=== PATIENT | male | born 1960 | race Caucasian/White ===

== ENCOUNTER 2020-11-18 13:08 | Inpatient (IN) | payer MEDICARE, OTHER ==
[~2020-11-18] VITALS: Ht 182.9 cm; Wt 59.9 kg
--- NOTE | 2020-11-18 13:11 | NUR ---
Patient brought in by ambulance service for nausea, vomiting and hyperglycemia
[2020-11-18] MEDS ORDERED: IV NORMAL SALINE 1000 ML BAG IV ONE ×2 (13:30→14:45)
[2020-11-18 14:07] LABS: BASOPHILS # (AUTO) 0.1 K/uL (0.0-8.0); BASOPHILS % (AUTO) 1.5 % (0.0-2.0); EOSINOPHILS # (AUTO) 0.2 K/uL (0.0-0.7); EOSINOPHILS % (AUTO) 2.5 % (0.0-7.0); HEMATOCRIT 34.7 % (36.7-47.1); HEMOGLOBIN 11.3 g/dL (12.5-16.3); MEAN CORPUSCULAR HEMOGLOBIN 25.3 uug (23.8-33.4); MEAN CORPUSCULAR HGB CONC 33 g/dL (32.5-36.3); MEAN CORPUSCULAR VOLUME 77.7 fL (73.0-96.2); MONOCYTES # (AUTO) 0.8 K/uL (2.0-10.0); MONOCYTES % (AUTO) 8.5 % (0.0-11.0); NEUTROPHILS # (AUTO) 6.3 K/uL (1.8-8.9); NEUTROPHILS % (AUTO) 66.5 % (38.5-71.5); PLATELET COUNT (AUTO) 560 K/uL (152-348); RED BLOOD CELL COUNT(AUTO) 4.46 MIL/uL (4.06-5.63); WHITE BLOOD COUNT (AUTO) 9.5 K/uL (3.6-10.2)
[2020-11-18 14:19] LABS: BILIRUBIN,DIRECT 0.1 mg/dL (0.0-0.2); BILIRUBIN,TOTAL 0.3 mg/dL (0.2-1.0); CREATININE 1.3 mg/dL (0.6-1.3); POTASSIUM 3.7 mmol/L (3.5-5.1); TOTAL PROTEIN, SERUM 7.4 g/dL (6.4-8.2)
[2020-11-18] MEDS ORDERED: INSULIN REGULAR, HUMAN 300 UNIT/3 ML VIAL IV ONE (14:45)
[2020-11-18] MEDS ORDERED: MONT10TA33 PO (14:59)
[2020-11-18] MEDS ORDERED: MULT-213 PO (14:59)
[2020-11-18] MEDS ORDERED: MIDO10TA PO (14:59)
[2020-11-18] MEDS ORDERED: ASCO500P18 PO (14:59)
[2020-11-18] MEDS ORDERED: ESCI10TA PO (14:59)
[2020-11-18] MEDS ORDERED: HEPA500034 SQ (14:59)
[2020-11-18] MEDS ORDERED: BUDE10.22 IH (14:59)
[2020-11-18] MEDS ORDERED: SUCR1TAB PO ×2 (14:59→15:35)
[2020-11-18] MEDS ORDERED: LAMO25TA10 PO (14:59)
[2020-11-18] MEDS ORDERED: THIA100T13 PO (14:59)
[2020-11-18] MEDS ORDERED: FERR325T28 PO (14:59)
[2020-11-18] MEDS ORDERED: ONDANSETRON 4 MG/2 ML VIAL IV ONE (15:00)
[2020-11-18] MEDS ORDERED: INSULIN REGULAR, HUMAN 300 UNIT/3 ML VIAL ONE (15:12)
[2020-11-18] MEDS ORDERED: ONDANSETRON 4 MG/2 ML VIAL ONE (15:12)
[2020-11-18] MEDS ORDERED: POLY17PO4 PO (15:26)
[2020-11-18] MEDS ORDERED: INSU100V39 SQ (15:26)
[2020-11-18] MEDS ORDERED: LEVO175T7 PO (15:26)
[2020-11-18] MEDS ORDERED: MAGN400T8 PO (15:26)
[2020-11-18] MEDS ORDERED: FOLI1TAB94 PO (15:26)
[2020-11-18] MEDS ORDERED: IPRA0.2S48 NEB (15:35)
[2020-11-18] MEDS ORDERED: INSU100V42 SQ (15:35)
[2020-11-18] MEDS ORDERED: INSU100I26 SQ (15:35)
[2020-11-18] MEDS ORDERED: INSU100I14 SQ (15:35)
--- NOTE | 2020-11-18 15:46 | NUR ---
Report given to Georgi at this time, room 317
--- NOTE | 2020-11-18 16:10 | NUR ---
60 YEAR OLD MALE RECEIVED FROM ER FOR HYPERNATREMIA .PT IS AXOX3 .ORIENT THE PT TO ROOM AND SURROUNDINGS VS ARE STABLE CALL LIGHT WITH IN REACH . CALLED FOR ADMISSION ORDERS
--- NOTE | 2020-11-18 16:17 | NUR ---
Pt. admitted to tele , under care of Dr. Ibrahim Belongs List completed and all belongings sent
[2020-11-18 16:26] VITALS: BP 103/71
[2020-11-18] MEDS: IV NS 1000 ML 1,000 ML IV SCH (17:20)
[2020-11-18] MEDS ORDERED: ASCO500T10 PO (18:02)
[2020-11-18] MEDS ORDERED: HEPA50008 SQ (18:12)
[2020-11-18] MEDS ORDERED: MULT-1045 PO (18:19)
[2020-11-18] MEDS: LAMOTRIGINE 25 MG TABLET PO SCH (18:25)
[2020-11-18] MEDS ORDERED: IPRATROPIUM BROMIDE 0.5 MG/2.5 ML NEBU NEB PRN (18:30)
[2020-11-18] MEDS ORDERED: DEXTROSE 50% 50 ML DISP.SYRIN IV PRN (18:45)
--- NOTE | 2020-11-18 19:30 | NUR ---
Received pt in bed, awake and verbally responsive, able to make needs known. Pt denies any pain or discomfort, no s/s of respiratory distress on room air. IVF infusing well. Safety measures initiated, call light within reach, will continue to monitor.
[2020-11-18] MEDS: MIDODRINE HCL 5 MG TABLET PO SCH (19:47)
--- NOTE | 2020-11-18 19:53 | NUR ---
Pt refused Lamictal medication. Explained the risks of non compliance to medications. Pt still refused. will continue to monitor.
[2020-11-18] MEDS ORDERED: HYDROCODONE/APAP 5-325MG TABLET PO PRN (20:00)
[2020-11-18] MEDS ORDERED: ZOLPIDEM 5 MG TABLET PO PRN (20:00)
--- NOTE | 2020-11-18 20:20 | NUR ---
Pt's blood sugar is 186. Pt refused insulin coverage and all 2100 medications. Explained to pt the risks of non compliance to medications. Pt still refused. will continue to monitor.
[2020-11-18 20:25] VITALS: BP 90/53
[2020-11-18] MEDS: SUCRALFATE 1 G TABLET PO SCH (20:26)
[2020-11-18] MEDS: INSULIN GLARGINE,HUM 300 UNITS/3 ML CARTRIDGE SQ SCH (20:26)
[2020-11-18] MEDS: HEPARIN SODIUM,PORCINE 5,000 UNITS/ML VIAL SQ SCH (20:26)
[2020-11-18] MEDS: BLOOD SUGAR DIAGNOSTIC 1 EACH STRIP VI SCH (20:26)
[2020-11-19] VITALS: BP 100/70
[2020-11-19 04:00] VITALS: BP 125/74
[2020-11-19] MEDS: LEVOTHYROXINE SODIUM 175 MCG TABLET PO SCH ×2 (06:19→08:44)
[2020-11-19 06:37] LABS: BASOPHILS # (AUTO) 0.1 K/uL (0.0-8.0); BASOPHILS % (AUTO) 1.1 % (0.0-2.0); EOSINOPHILS # (AUTO) 0.6 K/uL (0.0-0.7); EOSINOPHILS % (AUTO) 5.5 % (0.0-7.0); HEMATOCRIT 31.8 % (36.7-47.1); HEMOGLOBIN 10.2 g/dL (12.5-16.3); LYMPHOCYTES # (AUTO) 1.8 K/uL (20.0-40.0); LYMPHOCYTES % (AUTO) 17.3 % (20.5-51.5); MEAN CORPUSCULAR HEMOGLOBIN 25.3 uug (23.8-33.4); MEAN CORPUSCULAR HGB CONC 32 g/dL (32.5-36.3); MEAN CORPUSCULAR VOLUME 79.3 fL (73.0-96.2); MONOCYTES # (AUTO) 0.7 K/uL (2.0-10.0); MONOCYTES % (AUTO) 7.2 % (0.0-11.0); NEUTROPHILS # (AUTO) 7.1 K/uL (1.8-8.9); NEUTROPHILS % (AUTO) 68.9 % (38.5-71.5); PLATELET COUNT (AUTO) 443 K/uL (152-348); RED BLOOD CELL COUNT(AUTO) 4.01 MIL/uL (4.06-5.63); WHITE BLOOD COUNT (AUTO) 10.3 K/uL (3.6-10.2)
--- NOTE | 2020-11-19 06:38 | NUR ---
Pt's BS is 451 initially. Pt refused for a re-check. Called Lab to do a STAT blood sugar check. Awaiting results. NSR on tele at 87/min. No acute distress noted. Safety measures maintained at all times. Call light within reach, all needs attended.
[2020-11-19 06:43] LABS: MAGNESIUM 1.7 mg/dL (1.8-2.4); PHOSPHOROUS 3.2 mg/dL (2.5-4.9); POTASSIUM 5.4 mmol/L (3.5-5.1)
[2020-11-19] MEDS: BLOOD SUGAR DIAGNOSTIC 1 EACH STRIP VI SCH ×4 (06:49→21:00)
[2020-11-19] MEDS: INSULIN REGULAR, HUMAN 300 UNIT/3 ML VIAL SQ PRN ×2 (06:56→12:15)
--- NOTE | 2020-11-19 06:58 | NUR ---
Glucose level from lab is 470. Notified Dr. Nieto. 15 units of insulin administered following insulin sliding scale moderate AC. will endorse to incoming nurse. Addendum: 11/19/20 at 0730 by LORENA RASCON RN Correction: Glucose level from lab is 470. Notified Dr. Huang. 15 units of insulin administered following insulin sliding scale moderate AC. Continue with scheduled insulin dose. Will endorse to incoming nurse.
--- NOTE | 2020-11-19 07:54 | NUR ---
Alert, oriented x 4. IVF infusing
[2020-11-19] MEDS: MONTELUKAST SODIUM 10 MG TABLET PO SCH (08:41)
[2020-11-19] MEDS: SUCRALFATE 1 G TABLET PO SCH ×4 (08:41→21:00)
[2020-11-19] MEDS: MULTIVITAMINS,THERAPEUTIC TABLET PO SCH (08:42)
[2020-11-19] MEDS: MAGNESIUM OXIDE 400 MG TABLET PO SCH (08:42)
[2020-11-19] MEDS: ESCITALOPRAM OXALATE 10 MG TABLET PO SCH (08:43)
[2020-11-19] MEDS: FOLIC ACID 1 MG TABLET PO SCH (08:43)
[2020-11-19] MEDS: THIAMINE HCL 100 MG TABLET PO SCH (08:43)
[2020-11-19] MEDS: MIRALAX 17 GM POWD.PACK PO SCH (08:45)
[2020-11-19] MEDS: FERROUS SULFATE 300 MG/5 ML LIQUID UDC PO SCH (08:46)
[2020-11-19] MEDS: MIDODRINE HCL 5 MG TABLET PO SCH ×3 (08:47→17:45)
[2020-11-19] MEDS: FLUTICASONE/VILANTEROL 1 EACH BLST.W.DEV INH SCH (08:48)
[2020-11-19] MEDS: INSULIN REGULAR, HUMAN 300 UNITS/3 ML VIAL SQ SCH ×3 (08:50→16:30)
[2020-11-19] MEDS: LAMOTRIGINE 25 MG TABLET PO SCH ×2 (09:00→17:00)
[2020-11-19] MEDS: ASCORBIC ACID 500 MG TABLET PO SCH (09:00)
[2020-11-19] MEDS: HEPARIN SODIUM,PORCINE 5,000 UNITS/ML VIAL SQ SCH ×2 (09:00→21:00)
--- NOTE | 2020-11-19 09:00 | NUR ---
PATIENT CONTINUES TO REFUSE LAMICTAL. EXPLAINED RISKS BUT CONTINUES TO REFUSE. WILL CONTINUE TO MONITOR.
[2020-11-19] MEDS ORDERED: MAGNESIUM SULFATE/D5W 100 ML IV SCH (10:00)
[2020-11-19] MEDS: IV NS 1000 ML 1,000 ML IV SCH (12:27)
[2020-11-19] MEDS: ONDANSETRON 4 MG/2 ML VIAL IV PRN (12:33)
--- NOTE | 2020-11-19 13:00 | NUR ---
1230 PATIENT COMPLAINS OF NAUSEA WITH ONE EPISODE OF EMESIS. ZOFRAN ADMINISTERED. 1300 PATIENT STATED HE FEELS BETTER. WILL CONTINUE TO MONITOR.
[2020-11-19 15:31] VITALS: BP 98/62
--- NOTE | 2020-11-19 17:22 | NUR ---
PATIENT WITH BLOOD GLUCOSE CHECK OF 50. PATIENT IS AWAKE AND ALERT, STATES HE DOES NOT FEEL ANY SYMPTOMS OF FEELING COLD, SHAKY, NAUSEA, DIZZINESS OR LIGHT HEADEDNESS. REFUSED REPEAT BLOOD GLUCOSE TEST. GAVE PATIENT APPLE JUICE AND CRACKERS. WILL RECHECK BLOOD SUGAR IN 15 MIN., REFUSED TO TAKE LAMICTAL BY MOUTH, EXPLAINED OF RISKS BUT CONTINUES TO REFUSE MEDS. WILL CONTINUE TO MONITOR.
--- NOTE | 2020-11-19 17:57 | NUR ---
PATIENT IN BED AWAKE, NO COMPLAINS OF ANY PAIN OR DISCOMFORT AT THIS TIME. PATIENT CONTINUES TO BE NON COMPLIANT WITH MEDICATIONS. WILL REPORT TO ONCOMING SHIFT.
--- NOTE | 2020-11-19 18:25 | NUR ---
BLOOD SUGAR AT 218. PATIENT ONLY ALLOWED TO HAVE BLOOD SUGAR RECHECKED AT THIS TIME AFTER HAVING DINNER.
[2020-11-19] MEDS: INSULIN GLARGINE,HUM 300 UNITS/3 ML CARTRIDGE SQ SCH (21:00)
--- NOTE | 2020-11-19 21:25 | NUR ---
Received pt resting in bed. AAO x3. No acute distress noted. Denies pain/ discomfort. Pt non- compliant with care. Pt refused vital signs, due meds for tonight, and accuchek. Risks and benefits explained and offered multiple times, but pt continues to refused and presented with hostile behavior. IV on right wrist with IVF infusing at 50cc/ hr. Safety measures maintained. Call light and personal items within reach. Will continue to monitor.
[2020-11-20 04:40] VITALS: BP 113/73
[2020-11-20 06:35] LABS: BASOPHILS # (AUTO) 0.1 K/uL (0.0-8.0); BASOPHILS % (AUTO) 1.5 % (0.0-2.0); EOSINOPHILS # (AUTO) 0.7 K/uL (0.0-0.7); EOSINOPHILS % (AUTO) 8.1 % (0.0-7.0); HEMATOCRIT 31.4 % (36.7-47.1); LYMPHOCYTES # (AUTO) 1.7 K/uL (20.0-40.0); LYMPHOCYTES % (AUTO) 18.9 % (20.5-51.5); MEAN CORPUSCULAR HEMOGLOBIN 25.4 uug (23.8-33.4); MEAN CORPUSCULAR HGB CONC 32 g/dL (32.5-36.3); MEAN CORPUSCULAR VOLUME 79.7 fL (73.0-96.2); MONOCYTES # (AUTO) 0.6 K/uL (2.0-10.0); MONOCYTES % (AUTO) 6.4 % (0.0-11.0); NEUTROPHILS % (AUTO) 65.1 % (38.5-71.5); PLATELET COUNT (AUTO) 429 K/uL (152-348); RED BLOOD CELL COUNT(AUTO) 3.94 MIL/uL (4.06-5.63); WHITE BLOOD COUNT (AUTO) 9.3 K/uL (3.6-10.2)
--- NOTE | 2020-11-20 06:55 | NUR ---
Pt continues to be non compliant. Refused accucheck. Risks and benefits explained, offered multiple times. Pt refused. Pt stated to check it at breakfast. Endorsed accordingly.
[2020-11-20] MEDS: IV NS 1000 ML 1,000 ML IV SCH (07:02)
[2020-11-20] MEDS: BLOOD SUGAR DIAGNOSTIC 1 EACH STRIP VI SCH ×4 (07:16→20:00)
[2020-11-20] MEDS: INSULIN REGULAR, HUMAN 300 UNIT/3 ML VIAL SQ PRN ×2 (07:17→11:12)
[2020-11-20] MEDS: INSULIN REGULAR, HUMAN 300 UNITS/3 ML VIAL SQ SCH ×2 (07:17→11:11)
[2020-11-20 07:19] LABS: MAGNESIUM 1.8 mg/dL (1.8-2.4); PHOSPHOROUS 3.1 mg/dL (2.5-4.9); POTASSIUM 5.2 mmol/L (3.5-5.1)
[2020-11-20] MEDS: MIRALAX 17 GM POWD.PACK PO SCH (07:48)
[2020-11-20] MEDS: MONTELUKAST SODIUM 10 MG TABLET PO SCH (07:48)
[2020-11-20] MEDS: FERROUS SULFATE 300 MG/5 ML LIQUID UDC PO SCH ×2 (07:48→08:06)
[2020-11-20] MEDS: THIAMINE HCL 100 MG TABLET PO SCH (07:49)
[2020-11-20] MEDS: MULTIVITAMINS,THERAPEUTIC TABLET PO SCH (07:49)
[2020-11-20] MEDS: SUCRALFATE 1 G TABLET PO SCH ×4 (07:49→20:12)
[2020-11-20] MEDS: MAGNESIUM OXIDE 400 MG TABLET PO SCH (07:49)
[2020-11-20] MEDS: ASCORBIC ACID 500 MG TABLET PO SCH (07:49)
[2020-11-20] MEDS: LAMOTRIGINE 25 MG TABLET PO SCH ×2 (07:49→16:29)
[2020-11-20] MEDS: ESCITALOPRAM OXALATE 10 MG TABLET PO SCH (07:49)
[2020-11-20] MEDS: FOLIC ACID 1 MG TABLET PO SCH (07:49)
[2020-11-20] MEDS: FLUTICASONE/VILANTEROL 1 EACH BLST.W.DEV INH SCH (07:57)
[2020-11-20] MEDS: MIDODRINE HCL 5 MG TABLET PO SCH ×3 (08:06→16:29)
[2020-11-20] MEDS: HEPARIN SODIUM,PORCINE 5,000 UNITS/ML VIAL SQ SCH ×2 (08:07→20:12)
[2020-11-20 11:30] VITALS: BP 94/57
[2020-11-20] MEDS: INSULIN REGULAR, HUMAN 300 UNITS/3 ML VIAL SQ PRN ×2 (17:00→20:06)
[2020-11-20 17:01] VITALS: BP 92/59
[2020-11-20 19:59] VITALS: BP 90/59
[2020-11-20] MEDS: INSULIN GLARGINE,HUM 300 UNITS/3 ML CARTRIDGE SQ SCH (20:08)
--- NOTE | 2020-11-20 20:16 | NUR ---
Received pt resting in bed and watching tv. AAO X3. No acute distress noted. Denies pain/ discomfort. Pt refused PO med and heparin, risks and benefits explained. Offered multiple times, pt continues to refused. Accucheck 147, insulin coverage given as per sliding scale, scheduled Lantus also given. Snacks provided. Safety measures maintained. Call light and personal items within reach. Will continue to monitor.
[2020-11-21 05:05] VITALS: BP 96/56
[2020-11-21] MEDS: IV NS 1000 ML 1,000 ML IV SCH (05:31)
[2020-11-21 06:32] LABS: EOSINOPHILS # (AUTO) 1.1 K/uL (0.0-0.7); EOSINOPHILS % (AUTO) 11.8 % (0.0-7.0); HEMOGLOBIN 9.8 g/dL (12.5-16.3); LYMPHOCYTES # (AUTO) 2.5 K/uL (20.0-40.0); LYMPHOCYTES % (AUTO) 27.9 % (20.5-51.5); MEAN CORPUSCULAR HEMOGLOBIN 25.5 uug (23.8-33.4); MEAN CORPUSCULAR HGB CONC 33 g/dL (32.5-36.3); MEAN CORPUSCULAR VOLUME 78.2 fL (73.0-96.2); MONOCYTES # (AUTO) 4.5 K/uL (2.0-10.0); NEUTROPHILS # (AUTO) 0.9 K/uL (1.8-8.9); NEUTROPHILS % (AUTO) 10.3 % (38.5-71.5); PLATELET COUNT (AUTO) 424 K/uL (152-348); RED BLOOD CELL COUNT(AUTO) 3.84 MIL/uL (4.06-5.63); WHITE BLOOD COUNT (AUTO) 8.9 K/uL (3.6-10.2)
[2020-11-21 06:46] LABS: CREATININE 0.9 mg/dL (0.6-1.3); MAGNESIUM 1.7 mg/dL (1.8-2.4); NEUTROPHILS % (MANUAL) 58 % (42-75); PHOSPHOROUS 3.6 mg/dL (2.5-4.9); POTASSIUM 4.1 mmol/L (3.5-5.1)
[2020-11-21 06:47] LABS: BAND % (MANUAL) 1 % (0-10); EOSINOPHILS % (MANUAL) 11 % (0-8); LYMPHOCYTES % (MANUAL) 14 % (20-40); MONOCYTES % (MANUAL) 16 % (2-10)
[2020-11-21] MEDS: BLOOD SUGAR DIAGNOSTIC 1 EACH STRIP VI SCH ×4 (07:12→20:26)
[2020-11-21] MEDS: LEVOTHYROXINE SODIUM 175 MCG TABLET PO SCH (07:12)
[2020-11-21] MEDS: SUCRALFATE 1 G TABLET PO SCH ×4 (07:12→20:38)
[2020-11-21 08:00] VITALS: BP 101/68
[2020-11-21] MEDS: ASCORBIC ACID 500 MG TABLET PO SCH (08:02)
[2020-11-21] MEDS: FERROUS SULFATE 300 MG/5 ML LIQUID UDC PO SCH (08:02)
[2020-11-21] MEDS: ESCITALOPRAM OXALATE 10 MG TABLET PO SCH (08:02)
[2020-11-21] MEDS: MIDODRINE HCL 5 MG TABLET PO SCH ×3 (08:02→16:10)
[2020-11-21] MEDS: FLUTICASONE/VILANTEROL 1 EACH BLST.W.DEV INH SCH (08:02)
[2020-11-21] MEDS: MAGNESIUM OXIDE 400 MG TABLET PO SCH (08:02)
[2020-11-21] MEDS: MONTELUKAST SODIUM 10 MG TABLET PO SCH (08:02)
[2020-11-21] MEDS: MIRALAX 17 GM POWD.PACK PO SCH (08:02)
[2020-11-21] MEDS: LAMOTRIGINE 25 MG TABLET PO SCH ×2 (08:02→16:10)
[2020-11-21] MEDS: THIAMINE HCL 100 MG TABLET PO SCH (08:02)
[2020-11-21] MEDS: HEPARIN SODIUM,PORCINE 5,000 UNITS/ML VIAL SQ SCH ×2 (08:03→20:37)
[2020-11-21] MEDS: MULTIVITAMINS,THERAPEUTIC TABLET PO SCH (08:03)
[2020-11-21] MEDS: FOLIC ACID 1 MG TABLET PO SCH (08:03)
[2020-11-21] MEDS: ONDANSETRON 4 MG/2 ML VIAL IV PRN ×2 (08:48→16:11)
[2020-11-21] MEDS ORDERED: MAGNESIUM OXIDE 400 MG TABLET PO ONE (10:30)
[2020-11-21] MEDS ORDERED: MAGNESIUM SULFATE/D5W 100 ML IV SCH (11:30)
[2020-11-21 16:06] VITALS: BP 105/63
[2020-11-21] MEDS: INSULIN REGULAR, HUMAN 300 UNIT/3 ML VIAL SQ PRN (16:12)
[2020-11-21 20:24] VITALS: BP 99/54
[2020-11-21] MEDS: INSULIN REGULAR, HUMAN 300 UNITS/3 ML VIAL SQ PRN (20:26)
[2020-11-21] MEDS ORDERED: INSULIN GLARGINE,HUM 300 UNITS/3 ML CARTRIDGE SQ SCH (21:00)
--- NOTE | 2020-11-21 21:59 | NUR ---
Received pt resting in bed and watching tv. AAO x3. No acute distress noted. C/o 6/10 pain on right foot. PRN [place] given. Accucheck 114, no insulin coverage per sliding scale. Lantus given as ordered, snacks given. Pt refused Heparin and sucralfate. Risks and benefits explained, pt still refused. Safety measures maintained. Call light and personal items within reach. Will continue to monitor.
[2020-11-22] MEDS: IV NS 1000 ML 1,000 ML IV SCH ×2 (01:18→21:30)
[2020-11-22 04:31] VITALS: BP 95/48
[2020-11-22 06:39] LABS: BASOPHILS # (AUTO) 0.1 K/uL (0.0-8.0); BASOPHILS % (AUTO) 1.6 % (0.0-2.0); EOSINOPHILS # (AUTO) 1.1 K/uL (0.0-0.7); EOSINOPHILS % (AUTO) 17.3 % (0.0-7.0); HEMATOCRIT 30.4 % (36.7-47.1); HEMOGLOBIN 9.8 g/dL (12.5-16.3); MEAN CORPUSCULAR HEMOGLOBIN 25.4 uug (23.8-33.4); MEAN CORPUSCULAR HGB CONC 32 g/dL (32.5-36.3); MEAN CORPUSCULAR VOLUME 78.6 fL (73.0-96.2); MONOCYTES # (AUTO) 0.6 K/uL (2.0-10.0); MONOCYTES % (AUTO) 9.9 % (0.0-11.0); NEUTROPHILS # (AUTO) 2.3 K/uL (1.8-8.9); NEUTROPHILS % (AUTO) 38.2 % (38.5-71.5); PLATELET COUNT (AUTO) 394 K/uL (152-348); RED BLOOD CELL COUNT(AUTO) 3.87 MIL/uL (4.06-5.63); WHITE BLOOD COUNT (AUTO) 6.1 K/uL (3.6-10.2)
[2020-11-22 06:58] LABS: CREATININE 0.8 mg/dL (0.6-1.3); MAGNESIUM 1.7 mg/dL (1.8-2.4); PHOSPHOROUS 4.1 mg/dL (2.5-4.9); POTASSIUM 4.1 mmol/L (3.5-5.1)
[2020-11-22] MEDS ORDERED: LEVOTHYROXINE SODIUM 175 MCG TABLET PO SCH (07:00)
[2020-11-22] MEDS: SUCRALFATE 1 G TABLET PO SCH ×4 (07:30→20:26)
[2020-11-22] MEDS: FOLIC ACID 1 MG TABLET PO SCH (08:12)
[2020-11-22] MEDS: FERROUS SULFATE 325 MG TABEC PO SCH (08:12)
[2020-11-22] MEDS: ESCITALOPRAM OXALATE 10 MG TABLET PO SCH (08:13)
[2020-11-22] MEDS: MULTIVITAMINS,THERAPEUTIC TABLET PO SCH (08:13)
[2020-11-22] MEDS: MIRALAX 17 GM POWD.PACK PO SCH (08:20)
--- NOTE | 2020-11-22 08:20 | NUR ---
Received patient in bed alert and oriented x 3, patient is watching TV, no s/s of distress. Accucheck is obtained and blood sugar is 54, patient is verbally responsive, skin is warm to touch , patient is not shaking and comfortably watching TV and singing. Offered orange juice and patient drank it. Breakfast is being served. All due meds is given but patient refused some of his meds.explained the importance of taking the medications but patient stated " I DON'T WANT IT". Charge nurse made aware. When BP is about to check patient refused though explanation is given but still patient refused. Critical lab report is received from Julia hylton glucose is 35.
[2020-11-22] MEDS: LEVOTHYROXINE SODIUM 200 MCG TABLET PO SCH (08:21)
[2020-11-22] MEDS: FLUTICASONE/VILANTEROL 1 EACH BLST.W.DEV INH SCH (08:22)
[2020-11-22] MEDS: BLOOD SUGAR DIAGNOSTIC 1 EACH STRIP VI SCH ×5 (08:22→20:51)
[2020-11-22] MEDS: LAMOTRIGINE 25 MG TABLET PO SCH ×2 (08:22→17:57)
[2020-11-22] MEDS: MAGNESIUM OXIDE 400 MG TABLET PO SCH (08:23)
[2020-11-22] MEDS: MIDODRINE HCL 5 MG TABLET PO SCH ×3 (08:23→17:57)
[2020-11-22] MEDS: THIAMINE HCL 100 MG TABLET PO SCH (08:23)
[2020-11-22] MEDS: HEPARIN SODIUM,PORCINE 5,000 UNITS/ML VIAL SQ SCH ×2 (08:24→20:26)
[2020-11-22] MEDS: ASCORBIC ACID 500 MG TABLET PO SCH (08:24)
--- NOTE | 2020-11-22 08:38 | NUR ---
Patient refused to get recheck his blood sugar after 15 mins. patient stated " DO IT LATER" Patient is eating his breakfast with no s/s of distress and skin is warm to touch. Critical lab value is being reported to Dr. Ibrahim
--- NOTE | 2020-11-22 09:11 | NUR ---
Went back to the patient and asked if I can recheck his blood sugar and he agree. Blood sugar is 164. patient is alert and verbally responsive when asked how is he doing, patient stated " I FEEL GREAT"
--- NOTE | 2020-11-22 09:28 | NUR ---
Notified Dr. Ibrahim with his blood sugar of 164. Dr. Ibrahim order to DC Janae. Noted and carried out.
[2020-11-22] MEDS: MAGNESIUM SULFATE/D5W 100 ML IV SCH ×2 (10:09→11:23)
[2020-11-22 11:23] VITALS: BP 88/48
[2020-11-22] MEDS ORDERED: SUCRALFATE 1 G TABLET PO SCH (11:30)
[2020-11-22] MEDS: INSULIN REGULAR, HUMAN 300 UNIT/3 ML VIAL SQ PRN (12:08)
[2020-11-22 15:25] VITALS: BP 98/59
[2020-11-22] MEDS: MONTELUKAST SODIUM 10 MG TABLET PO SCH (18:09)
--- NOTE | 2020-11-22 20:00 | NUR ---
RECEIVED PATIENT AWAKE IN BED. A/O X4. DENIES PAIN OR DISCOMFORT. NO RESP. DISTRESS NOTED. VS WNL. IVF INFUSING WELL TO RIGHT FA #20 GAUGE. CALL LIGHT IN REACH. ALL NEEDS ATTENDED, WILL CONTINUE TO MONITOR AND ASSESS.
[2020-11-22 20:16] VITALS: BP 90/50
[2020-11-22] MEDS: INSULIN REGULAR, HUMAN 300 UNITS/3 ML VIAL SQ PRN (20:52)
[2020-11-23 04:36] VITALS: BP 99/58
[2020-11-23] MEDS: LEVOTHYROXINE SODIUM 200 MCG TABLET PO SCH (06:01)
[2020-11-23] MEDS: SUCRALFATE 1 G TABLET PO SCH ×4 (06:43→20:23)
[2020-11-23] MEDS: BLOOD SUGAR DIAGNOSTIC 1 EACH STRIP VI SCH ×4 (06:43→20:17)
[2020-11-23 06:50] LABS: CREATININE 0.7 mg/dL (0.6-1.3); MAGNESIUM 1.7 mg/dL (1.8-2.4); PHOSPHOROUS 3.6 mg/dL (2.5-4.9); POTASSIUM 4.3 mmol/L (3.5-5.1)
[2020-11-23 07:01] LABS: THYROID STIMULATING HORMONE 14.089 mIU/mL (0.358-3.740)
[2020-11-23 07:09] LABS: BASOPHILS # (AUTO) 0.1 K/uL (0.0-8.0); BASOPHILS % (AUTO) 1.2 % (0.0-2.0); EOSINOPHILS % (AUTO) 16.9 % (0.0-7.0); HEMATOCRIT 28.7 % (36.7-47.1); HEMOGLOBIN 9.3 g/dL (12.5-16.3); LYMPHOCYTES % (AUTO) 34.6 % (20.5-51.5); MEAN CORPUSCULAR HEMOGLOBIN 25.4 uug (23.8-33.4); MEAN CORPUSCULAR HGB CONC 33 g/dL (32.5-36.3); MEAN CORPUSCULAR VOLUME 77.8 fL (73.0-96.2); MONOCYTES # (AUTO) 0.5 K/uL (2.0-10.0); MONOCYTES % (AUTO) 8.7 % (0.0-11.0); NEUTROPHILS # (AUTO) 2.3 K/uL (1.8-8.9); NEUTROPHILS % (AUTO) 38.6 % (38.5-71.5); PLATELET COUNT (AUTO) 354 K/uL (152-348); RED BLOOD CELL COUNT(AUTO) 3.68 MIL/uL (4.06-5.63); WHITE BLOOD COUNT (AUTO) 5.9 K/uL (3.6-10.2)
--- NOTE | 2020-11-23 07:38 | NUR ---
Received awake and responsive watching tv. No acute distress. Denies pain or sob. He is comfortable. Call light in reach. Will continue to monitor.
[2020-11-23] MEDS: INSULIN REGULAR, HUMAN 300 UNIT/3 ML VIAL SQ PRN ×3 (08:04→16:46)
[2020-11-23 08:20] VITALS: BP 102/68
[2020-11-23] MEDS: MIRALAX 17 GM POWD.PACK PO SCH (09:21)
--- NOTE | 2020-11-23 09:25 | NUR ---
Offered medications but patient refused saying he doesn't want to swallow his pills. Explained risks and benefits but pt still refused. Will try again later.
[2020-11-23] MEDS: MIDODRINE HCL 5 MG TABLET PO SCH ×3 (10:00→17:18)
[2020-11-23] MEDS: FERROUS SULFATE 325 MG TABEC PO SCH (10:00)
[2020-11-23] MEDS: THIAMINE HCL 100 MG TABLET PO SCH (10:00)
[2020-11-23] MEDS: FLUTICASONE/VILANTEROL 1 EACH BLST.W.DEV INH SCH (10:00)
[2020-11-23] MEDS: HEPARIN SODIUM,PORCINE 5,000 UNITS/ML VIAL SQ SCH ×2 (10:00→20:23)
[2020-11-23] MEDS: ASCORBIC ACID 500 MG TABLET PO SCH (10:00)
[2020-11-23] MEDS: MAGNESIUM OXIDE 400 MG TABLET PO SCH (10:00)
[2020-11-23] MEDS: MULTIVITAMINS,THERAPEUTIC TABLET PO SCH (10:00)
[2020-11-23] MEDS: FOLIC ACID 1 MG TABLET PO SCH (10:00)
[2020-11-23] MEDS: ESCITALOPRAM OXALATE 10 MG TABLET PO SCH (10:00)
[2020-11-23] MEDS: LAMOTRIGINE 25 MG TABLET PO SCH ×2 (10:00→17:18)
--- NOTE | 2020-11-23 10:08 | NUR ---
Patient refused morning meds except Miralax. Risks and benefits explained but pt is uncooperative saying he can't swallow his pills. made aware.
[2020-11-23] MEDS: MAGNESIUM SULFATE/D5W 100 ML IV SCH ×2 (10:10→11:22)
[2020-11-23 11:04] VITALS: BP 100/68
[2020-11-23 15:22] VITALS: BP 90/56
--- NOTE | 2020-11-23 17:02 | NUR ---
Differential Tester consultation: Differential Tester consultation requested for safe discharge planning, per conversation with SHEA Rivera who stated that patient was insisting on going home and was not cooperative with her when she tried to discuss discharge planning. Patient is a 60 year old male. Per ED physician's note, patient was brought to the ED from [facility] due to blood sugar being over 400, nausea and vomiting. This SECURITY SHIFT MANAGER contacted [facility] and spoke with CARLOS Overton. Brooklynn stated that patient has been at [facility] since July 22, 2020. Brooklynn stated that patient came to them from another hospital, and that he has a history of previous SNF placements. Patient was living at home with his mother Christie, and per Brooklynn there was an APS report that was done prior to patient getting placed at [facility]. APS report was for neglect of self and mother, inability to take care of eachother. Brooklynn stated that per patient's family, patient has a history of traumatic brain injury that he sustained as a teenager. Brooklynn stated that this TBI has effected patient's short term memory. Brooklynn stated that patient has been referred for conservatorship, and that he has a court date scheduled for December 03. Brooklynn provided contact information to the public guardian's office, Yarely Lugo [phone] and Ashley Cheek Deputy, . This SECURITY SHIFT MANAGER asked Brooklynn if patient is able to return to [facility] upon discharge, and Brooklynn stated that they will accept the patient back. This SECURITY SHIFT MANAGER then met with the patient. Patient is awake, alert, sitting up in his hospital bed when this SECURITY SHIFT MANAGER entered the room. Patient was receptive to meeting with this SECURITY SHIFT MANAGER. Patient is oriented to name, place (hospital), stated that it is November 24 (although it is November 23), however stated that it is the year 2000. When this SECURITY SHIFT MANAGER oriented patient to the year, patient presented with a confused look and stated "well I don't have a newspaper to look at". This SECURITY SHIFT MANAGER asked patient if he knew where his mother was and he stated that his sisters put her in a home. Discharge plans were discussed and patient stated that he would be going to [place], although he didn't know how he would get there from here. Patient stated he would go to [facility], and when this SECURITY SHIFT MANAGER inquired where on [facility] he said "that's where Carroll lives, in [place], he rents room". When this SECURITY SHIFT MANAGER asked if this SECURITY SHIFT MANAGER can all Carroll to confirm this plan, patient stated "well I have to call him first". Patient then went on to say "or maybe I'll just go and be homeless or maybe I'll drive up north, I have a couple of cars". When this SECURITY SHIFT MANAGER inquired about where the cars were, patient stated they are at his mom's house in [place], but could not state how he would get there. This SECURITY SHIFT MANAGER asked patient if SECURITY SHIFT MANAGER can contact patient's family for care coordination, and patient refused, stating "I make my own decisions". This SECURITY SHIFT MANAGER informed patient that he was in the process of getting a conservatorship assigned to him, and patient expressed not being aware of this and not having any paperwork pertaining to this. Per Brooklynn at [facility], she was contacted by Deputy Tona, , at the Public Guardian's office and assisted Ashley with serving the patient with the necessary paperwork. Patient was not able to provide this SECURITY SHIFT MANAGER with a safe discharge plan. This SECURITY SHIFT MANAGER spoke with RN Austin, informed him of above, and requested a psychiatric consultation. This SECURITY SHIFT MANAGER also informed CM Nicole of above. Plan: This SECURITY SHIFT MANAGER to follow-up with public guardian's office to gather additional information regarding patient's conservatorship process/status. Differential Tester to remain available to coordinate with CM to ensure a safe and proper discharge plan.
[2020-11-23] MEDS: IV NS 1000 ML 1,000 ML IV SCH (17:35)
[2020-11-23] MEDS: MONTELUKAST SODIUM 10 MG TABLET PO SCH (17:40)
--- NOTE | 2020-11-23 19:06 | NUR ---
Patient asleep but easily arousable. Breathing even and nonlabored. Denies pain or discomfort. IV on right wrist intact and patent. Iv hydration ongoing tolerated. Patient is comfortable. Will endorse accordingly.
--- NOTE | 2020-11-23 19:30 | NUR ---
RECEIVED PT AWAKE, ALERT AND ORIENTEDX4. PT IN NO ACUTE DISTRESS. IV INTACT. SAFETY AND COMFORT PROVIDED. WILL CONTINUE TO MONITOR.
[2020-11-23 20:00] VITALS: BP 96/69
[2020-11-23] MEDS: INSULIN REGULAR, HUMAN 300 UNITS/3 ML VIAL SQ PRN (20:18)
[2020-11-23] MEDS: ONDANSETRON 4 MG/2 ML VIAL IV PRN (22:55)
[2020-11-24 04:06] LABS: INSULIN <0.4 uIU/mL (2.6-24.9)
[2020-11-24 04:52] VITALS: BP 99/71
[2020-11-24] MEDS: LEVOTHYROXINE SODIUM 200 MCG TABLET PO SCH (06:01)
--- NOTE | 2020-11-24 06:31 | NUR ---
PT SLEPT INTERMITTENTLY. PT IN NO ACUTE DISTRESS. PRESCRIBED MEDICATION GIVEN AND PT TOLERATED IT WELL. SAFETY AND COMFORT PROVIDED. PT REFUSED HIS CARAFATE, SYNTHROID AND HIS BLOOD SUGAR CHECK. PT EASILY IRRITATED. WILL ENDORSE TO INCOMING NURSE FOR CONTINUITY OF CARE.
[2020-11-24] MEDS: BLOOD SUGAR DIAGNOSTIC 1 EACH STRIP VI SCH ×4 (06:32→21:02)
[2020-11-24] MEDS: SUCRALFATE 1 G TABLET PO SCH ×4 (06:32→21:00)
[2020-11-24 06:54] LABS: CREATININE 0.8 mg/dL (0.6-1.3); MAGNESIUM 1.6 mg/dL (1.8-2.4); POTASSIUM 4.9 mmol/L (3.5-5.1)
--- NOTE | 2020-11-24 07:45 | NUR ---
Received awake and watching tv. Denies pain. In no acute distress. Iv hydration on right wrist intact and patent tolerated. No complaints at this time. Will continue to monitor.
[2020-11-24] MEDS: INSULIN REGULAR, HUMAN 300 UNIT/3 ML VIAL SQ PRN ×3 (07:55→16:38)
--- NOTE | 2020-11-24 08:02 | NUR ---
Dr. Mcnair made aware of critical lab result today and bs result of 434 this morning, administered 15 units per ordered. Patient is alert and oriented, watching tv. No resp distress. Will continue to monitor.
[2020-11-24] MEDS: MIRALAX 17 GM POWD.PACK PO SCH (09:00)
[2020-11-24] MEDS: HEPARIN SODIUM,PORCINE 5,000 UNITS/ML VIAL SQ SCH (09:00)
[2020-11-24] MEDS: THIAMINE HCL 100 MG TABLET PO SCH (09:10)
[2020-11-24] MEDS: MULTIVITAMINS,THERAPEUTIC TABLET PO SCH (09:10)
[2020-11-24] MEDS: MAGNESIUM OXIDE 400 MG TABLET PO SCH (09:10)
[2020-11-24] MEDS: FERROUS SULFATE 325 MG TABEC PO SCH (09:11)
[2020-11-24] MEDS: ASCORBIC ACID 500 MG TABLET PO SCH (09:11)
[2020-11-24] MEDS: LAMOTRIGINE 25 MG TABLET PO SCH ×2 (09:11→16:47)
[2020-11-24] MEDS: FOLIC ACID 1 MG TABLET PO SCH (09:11)
[2020-11-24] MEDS: ESCITALOPRAM OXALATE 10 MG TABLET PO SCH (09:12)
[2020-11-24] MEDS: FLUTICASONE/VILANTEROL 1 EACH BLST.W.DEV INH SCH (09:13)
[2020-11-24] MEDS: MIDODRINE HCL 5 MG TABLET PO SCH ×3 (09:13→16:42)
--- NOTE | 2020-11-24 10:59 | NUR ---
This MACHINIST SET UP attempted to contact Monique Gray, Family Court Marriage And Family Therapist and Driver Recruiter, , to discuss status of patient's conservatorship process. Monique was not available. This MACHINIST SET UP will attempt to contact Monique again.
[2020-11-24 12:02] VITALS: BP 92/64
[2020-11-24 12:06] LABS: CORTISOL AM 5.7 ug/dL (6.2-19.4)
[2020-11-24] MEDS: MAGNESIUM SULFATE/D5W 100 ML IV SCH ×2 (13:10→14:36)
[2020-11-24] MEDS: IV NS 1000 ML 1,000 ML IV SCH (13:12)
[2020-11-24] MEDS ORDERED: HYDROCODONE/APAP 5-325MG TABLET PO PRN (15:00)
--- NOTE | 2020-11-24 15:17 | NUR ---
This COMPLIANCE SPECIALIST attempted to contact Monique Gray, Family Court Professor Of Chemical Engineering and Postal Transportation Clerk, , once again. Monique was not available. This COMPLIANCE SPECIALIST left a voicemail message asking for a call back.
[2020-11-24 16:00] VITALS: BP 90/43
[2020-11-24] MEDS: MONTELUKAST SODIUM 10 MG TABLET PO SCH (17:03)
[2020-11-24] MEDS ORDERED: RIVAROXABAN 10 MG TABLET PO SCH (18:00)
--- NOTE | 2020-11-24 19:26 | NUR ---
PATIENT AWAKE IN BED, NO COMPLAINS OF ANY PAIN OR DISCOMFORT AT THIS TIME. IV PATENT AND FLUSHED. WILL REPORT TO ONCOMING NURSE.
--- NOTE | 2020-11-24 19:30 | NUR ---
Received pt in bed, awake and verbally responsive, denies any pain or discomfort, no s/s of respiratory distress. IVF infusing well. Safety measures initiated, call light within reach, will continue to monitor.
[2020-11-24 20:25] VITALS: BP 100/64
[2020-11-24] MEDS ORDERED: INSULIN GLARGINE,HUM 300 UNITS/3 ML CARTRIDGE SQ SCH (21:00)
[2020-11-24] MEDS: INSULIN REGULAR, HUMAN 300 UNITS/3 ML VIAL SQ PRN (21:02)
[2020-11-25 04:25] VITALS: BP 104/63
[2020-11-25] MEDS: SUCRALFATE 1 G TABLET PO SCH ×3 (06:50→15:52)
[2020-11-25] MEDS: BLOOD SUGAR DIAGNOSTIC 1 EACH STRIP VI SCH ×3 (06:50→15:52)
--- NOTE | 2020-11-25 06:53 | NUR ---
Pt slept through the night. No s/s of respiratory distress, tolerated medications well. IVF infusing well on R wrist. Bed locked and in low position, side rails up, call light within reach. All needs attended.
[2020-11-25 07:00] LABS: CREATININE 0.8 mg/dL (0.6-1.3); MAGNESIUM 1.9 mg/dL (1.8-2.4)
[2020-11-25] MEDS ORDERED: COSYNTROPIN 0.25 MG VIAL IV ONE (08:00)
[2020-11-25] MEDS: ESCITALOPRAM OXALATE 10 MG TABLET PO SCH (08:19)
[2020-11-25] MEDS: MIDODRINE HCL 5 MG TABLET PO SCH ×2 (08:19→13:18)
[2020-11-25] MEDS: THIAMINE HCL 100 MG TABLET PO SCH (08:19)
[2020-11-25] MEDS: MULTIVITAMINS,THERAPEUTIC TABLET PO SCH (08:19)
[2020-11-25] MEDS: LAMOTRIGINE 25 MG TABLET PO SCH (08:19)
[2020-11-25] MEDS: MAGNESIUM OXIDE 400 MG TABLET PO SCH (08:19)
[2020-11-25] MEDS: LEVOTHYROXINE SODIUM 200 MCG TABLET PO SCH (08:19)
[2020-11-25] MEDS: FERROUS SULFATE 325 MG TABEC PO SCH (08:22)
[2020-11-25] MEDS: FLUTICASONE/VILANTEROL 1 EACH BLST.W.DEV INH SCH (08:22)
[2020-11-25] MEDS: MIRALAX 17 GM POWD.PACK PO SCH (08:23)
[2020-11-25] MEDS: ASCORBIC ACID 500 MG TABLET PO SCH (08:23)
[2020-11-25] MEDS: FOLIC ACID 1 MG TABLET PO SCH (08:23)
[2020-11-25] MEDS: IV NS 1000 ML 1,000 ML IV SCH (09:51)
--- NOTE | 2020-11-25 10:09 | NUR ---
This PHYSICIANS AND SURGEONS attempted to contact Monique Gray, Family Court Industrial Sweeper Cleaner and Epic Radiant Analyst, , once again. Monique was available, and stated that she was finishing up a mediation, and would then call this PHYSICIANS AND SURGEONS back in about an hour or so. PHYSICIANS AND SURGEONS expressed agreement. PHYSICIANS AND SURGEONS will await a call back.
[2020-11-25] MEDS: INSULIN REGULAR, HUMAN 300 UNIT/3 ML VIAL SQ PRN (11:35)
--- NOTE | 2020-11-25 11:36 | NUR ---
Clinical Social Work Note Dr Mcnair requested consultation regarding this 60 year old male patient's decision-making capacity. Patient was seen in his hospital room where he presents as very pale. Patient has a loud voice and is slow to process information. He is alert and oriented to person only. He does not know where he is. When asked here he wants to go when he is discharged later, he states " home to [place]. He is unable to provide an address. Per Hawa CORREA's note, patient has a history of traumatic brain injury. There is also an APS case open as patient and his mother were unable to care for themselves. Per Hailey at [facility] ([phone]) patient has a conservatorship hearing on December 03 since he is suspected to be unable to care for himself. The hearing is for courts to gain decision-making over patient's person and estate. In view of this hearing, patient's presentation is that of grave disability which suggests his inability to provide for his food. clothing and intermediate.
[2020-11-25 11:43] VITALS: BP 94/62
--- NOTE | 2020-11-25 11:50 | NUR ---
11:30am: This PROGRAM PROJECT ANALYST received a call back from Monique Gray, Family Court Qa Reviewer and Manager Of Quality, . Patients need for conservatorship discussed, and Monique stated that patient was referred for public guardianship due to neglect/self-neglect, impaired judgement and impaired insight, inability to make safe decisions for himself. Monique confirmed that the court date is scheduled for December 03, during which time a public guardian will be assigned to the patient. Monique also stated that patients mother is currently in a SNF, arranged by patients sisters, however patient has been uncooperative with providing family contact information to Monique. This PROGRAM PROJECT ANALYST expressed having the same experience, where patient refused to provide family contact information to this PROGRAM PROJECT ANALYST for the purposes of care coordination. This PROGRAM PROJECT ANALYST informed Monique that the discharge plans are for patient to return back to the SNF, and Monique expressed agreement with this plan, stating that this would be the safest plan for the patient. This PROGRAM PROJECT ANALYST stated that socially responsible investment adviser and case management are working with the patient to ensure a safe and proper discharge plan.
--- NOTE | 2020-11-25 12:38 | NUR ---
Discharge Plan Update In view of patient's upcoming court hearing for conservatorship on December 03 and his questionable decision- making capacity, patient will return to [facility] this afternoon since there is no alternative safe disposition. Patient cannot ambulate well and has multiple medical conditions including diabetes that necessitate nursing home care. Patient has a history of neglecting his health and diabetes per Hawa CORREA's report gleaned from [facility]. Courts are moving to obtain conservatorship over patient's person and estate on 12/03/20. Discussed with Dr Mcnair. Patient threw coffee at [facility], earlier. His mood is labile and he is impulsive most likely a result of his history of traumatic brain injury and mood disorder. Dr Rodriguez started psychotropic medication after consult.
[2020-11-25] MEDS ORDERED: HALOPERIDOL LACTATE 5 MG/1 ML VIAL IM ONE (13:15)
[2020-11-25] MEDS ORDERED: IPRA0.2S6 NEB (14:59)
[2020-11-25] MEDS ORDERED: ZOLP5TAB8 PO (14:59)
[2020-11-25] MEDS ORDERED: Blood Sugar Diagnostic VI (14:59)
[2020-11-25] MEDS ORDERED: INSU100V28 SQ ×2 (14:59)
[2020-11-25] MEDS ORDERED: FLUT1BLS INH (14:59)
[2020-11-25] MEDS ORDERED: DEXT50DI8 IV (14:59)
[2020-11-25] MEDS ORDERED: LEVO200T PO (14:59)
[2020-11-25] MEDS ORDERED: RIVA10TA PO (14:59)
[2020-11-25] MEDS ORDERED: Insulin Glargine,Hum SQ (14:59)
[2020-11-25] MEDS ORDERED: HYDR-3972 PO (14:59)
[2020-11-25 15:13] VITALS: BP 102/60
--- NOTE | 2020-11-25 16:28 | NUR ---
dc orders received noted and carried out,dc heplock per md orders.dc instruction and rn report given to the skilled nursing pt left the facility via ambulances in henri condition
--- NOTE | 2020-11-26 13:51 | NUR ---
Certified Master Safecracker note: This VIOLIN TEACHER received a voicemail message from Monique Gray, Family Court Tear Down Man and Service Delivery Director, , who was asking for information about patient's admission date, discharge date, and name of attending physician. This VIOLIN TEACHER called Monique back and provided her with the information requested.
== END 2020-11-25 16:30 | DRG 637 ==
LOC: ER 13:08 → TELE3 15:48 → MEDSURG3 11-19 07:45
PROVIDERS: ADMIT Student in an Organized Health Care Education/Training Program; ATTEND Internal Medicine
DX: E11.65 Type 2 diabetes mellitus with hyperglycemia (principal); N17.0 Acute kidney failure with tubular necrosis; E87.1 Hypo-osmolality and hyponatremia; E44.0 Moderate protein-calorie malnutrition; G93.40 Encephalopathy, unspecified; D68.59 Other primary thrombophilia; Z68.1 Body mass index [BMI] 19.9 or less, adult; E87.2 Acidosis; Z85.72 Personal history of non-Hodgkin lymphomas; K56.41 Fecal impaction; E86.0 Dehydration; E03.9 Hypothyroidism, unspecified; R13.10 Dysphagia, unspecified; D64.9 Anemia, unspecified; E88.09 Other disorders of plasma-protein metabolism, not elsewhere classified; Z87.820 Personal history of traumatic brain injury; Z20.822 Contact with and (suspected) exposure to COVID-19; E86.9 Volume depletion, unspecified; Z91.19 Patient's noncompliance with other medical treatment and regimen; K29.00 Acute gastritis without bleeding; Z74.09 Other reduced mobility; Z79.4 Long term (current) use of insulin; F32.9 Major depressive disorder, single episode, unspecified; D72.828 Other elevated white blood cell count
CPT/HCPCS: 36415; 70030-TC; 71045; 74018; 82533; 83525; 83605; 83690; 83735; 84100; 84443; 85025; 85730; 87040; 93005; A4663; G0378; J0834; J1630; J1644; J1815; J2405; J3475; J7030; U0003